=== PATIENT | female | born 1990 | race American Indian/Alaskan Native ===

== ENCOUNTER 2017-04-06 11:18 | Day surgery (SDC) | payer BC, OTHER ==
[2017-04-03 12:00] VITALS: BMI 25.0
[2017-04-06] MEDS ORDERED: Bupivacaine 0.5% Inj(30mL) ONE (11:58)
[2017-04-06 12:11] LABS: BASO % 0.6 % (0.0-2.0); EOS # 0.1 K/uL (0.0-0.7); HEMOGLOBIN 11.5 g/dL (12.0-16.0); LYMPH # 1.6 K/uL (1.0-4.3); LYMPH % 29.6 % (20.0-40.0); MEAN CELL VOLUME 97.8 fl (81.0-99.0); MEAN CORPUSCULAR HEMOGLOBIN 31.3 pg (27.0-31.0); MEAN PLATELET VOLUME 6.2 fl (7.2-11.7); MONO # 0.4 K/uL (0.0-0.8); MONO % 7.5 % (0.0-10.0); NEUT # 3.3 K/uL (1.8-7.0); NEUT % 61.3 % (50.0-75.0); NRBC % 0.1 % (0.0-0.0); RBC 3.68 Mil/uL (3.80-5.20); RED CELL DISTRIBUTION WIDTH 12.4 % (11.5-14.5); WHITE BLOOD COUNT 5.4 K/uL (4.8-10.8)
[2017-04-06] MEDS ORDERED: ePHEDrine 50 mg/ml Inj ONE (12:29)
[2017-04-06] MEDS ORDERED: Midazolam 2 MG/2 ML VIAL ONE (12:29)
[2017-04-06] MEDS ORDERED: Propofol 10 mg/ml Inj (20 ML) ONE ×2 (12:29→14:59)
[2017-04-06] MEDS ORDERED: Rocuronium 10 mg/ml (5 ml) ONE (12:29)
[2017-04-06] MEDS ORDERED: Succinylcholine 200 mg/10 ml Inj IV ONE (12:29)
[2017-04-06] MEDS ORDERED: Lactated Ringer's 1,000 ML IV ONE ×3 (13:09→17:00)
[2017-04-06] MEDS ORDERED: Dexamethasone 4 mg/1 ml ONE (13:29)
[2017-04-06] MEDS ORDERED: Bupivacaine 0.5% 50 ML IJ ONE ×2 (13:34)
--- NOTE | 2017-04-06 15:35 | PCM.SURG1 ---
Surgeon's Initial Post Op Note - Surgeon's Notes Surgeon: Dr. Claudio Chainstitch Elastic Attacher: Dom Mclean PGY2, Mike FELIZ Type of Anesthesia: General Endo Pre-Operative Diagnosis: R dermoid cyst Operative Findings: R dermoid cyst, hair Post-Operative Diagnosis: Same Operation Performed: Robotic R cystectomy Specimen/Specimens Removed: Dermoid cyst, hair Estimated Blood Loss: EBL {In ML}: 10 Blood Products Given: N/A Drains Used: No Drains Post-Op Condition: Good Date of Surgery/Procedure: 04/06/17 Time of Surgery/Procedure: 15:35
[2017-04-06] MEDS ORDERED: Oxycodone/Acetaminophen 5/325 mg Tab PO PRN (15:36)
[2017-04-06] MEDS ORDERED: Neostigmine Methylsulfate 2 MG/2 ML ML IV ONE (15:37)
[2017-04-06] MEDS: HYDROmorphone 0.5 mg/0.5 ml ISec IVP PRN ×3 (15:48→16:42)
[2017-04-06] MEDS ORDERED: Oxycodone/Acetaminophen 5/325 mg Tab PO ONE (15:49)
--- NOTE | 2017-04-06 22:45 | OP ---
PREOPERATIVE DIAGNOSIS: Right dermoid cyst. POSTOPERATIVE DIAGNOSIS: Right dermoid cyst. PROCEDURE: Right ovarian cystectomy, robotic assisted. SURGEON: Dr. Svitlana Claudio. COMPENSATION BUSINESS PARTNER: . TYPE OF ANESTHESIA: General. ANESTHESIA ADMINISTERED BY: Dr. Campos. ESTIMATED BLOOD LOSS: 50 mL, Rivas catheter put out approximately 500 mL of clear urine. Patient received approximately 1 liter of D5 in OR intraoperatively. OPERATIVE FINDINGS: Normal uterus with approximately 2 cm posterior myoma, endometriosis located along the right uterosacral ligament, large right 9 cm dermoid cyst, normal left ovary and tube. assisted in the procedure, he was instrumental in the care of the patient. He helped to create exposure, obtain hemostasis, he was helpful in extraction of the specimen and closure of the patient. Procedure would not had been possible without his assistance. PROCEDURE: After informed consent was obtained, the patient was taken to the operating room and she was given general anesthesia. The patient was then placed, prepped and draped in a modified dorsal lithotomy position. A weighted speculum was then inserted into the vagina, cervix was visualized, grasped with a single-toothed tenaculum. The cervix was gently dilated and a Humi uterine manipulator was inserted into the uterine cavity as a means to manipulate the uterus. Attention was then turned to the urethra where a Rivas catheter was inserted to monitor the patient's urinary output. Attention was then turned to the abdomen, where Marcaine was infused approximately 2 cm superior to the umbilicus. A 8 mm incision was made. The abdomen was then tented upward and the varus needle was introduced into the abdominal cavity, placement was confirmed with a fluid filled syringe. The abdomen was then insufflated to 15 mmHg. The Veress needle was removed and an 8 mm robotic port was introduced into the abdominal cavity and placement was confirmed with the laparoscope. Attention was then turned to approximately 3 cm superior to the right anterior iliac crest. Marcaine was infused. A 8 mm incision was made and a robotic port was introduced into the abdominal cavity. Attention was then turned to the left side approximately 3 cm superior to the left anterior iliac crest in similar fashion. Marcaine was infused and 8 mm incision was made, and an 8 mm robotic port was introduced into abdominal cavity. Approximately 5 cm left and lateral, the 5 mm incision was made and a 5 mm port was introduced into the abdominal cavity using the assisted port. The instruments used for the surgery were PK dissector, and a scissor, and a laparoscopic grasper. Actually the patient was placed in steep Trendelenburg, the table was lowered. The robot was brought along the patient side and docked without complication. The instruments inserted in the abdomen were the PK dissector and scissor. I then proceeded to break scrub and proceeded to surgical console. Attention was then turned to the right ovary. The cortex was scored and the dermoid was enucleated using series of both sharp and blunt dissection. Once the cyst was enucleated from the ovary, it was placed in the pelvis. Hemostasis was obtained with PK dissector. There was some extravasation of material, which was fatty tissue or fatty fluid. It was suctioned with a suction retort load expediter. Once the cyst was enucleated, the robot was then docked and all instruments were removed from the abdomen. The robot was docked. The right incision was 3 cm superior to the iliac crest was extended to approximately 10 mm and a 10 mm port was introduced into the abdominal cavity. An endobag was inserted. The cyst was placed in the endobag and extracted without complication. The abdomen was then copiously irrigated. The irrigant was removed with the suction device. The abdomen was surveyed. No hair or fatty secretions were identified. The ovary was reexamined and the edges were cauterized. The Surgicel was placed on the ovary. All instruments were then removed from the abdomen. The attention was then turned to the 10 mm port. The fascia was identified and closed with 0 Vicryl. The remaining incisions were closed with Dermabond. All sponge, lap, needle, and instrument counts were correct x2, and the patient was taken to the recovery room in awake and stable condition. Tory Claudio MD
[2017-04-06 22:53] VITALS: RESP 17; TEMP 97.5; O2SAT 96
[2017-04-06 22:56] VITALS: BP 129/80; PULSE 82
== END 2017-04-06 22:25 | disposition home or self-care (01) ==
LOC: H.OPSURG 11:18 → H.MEDSURG1 20:07 → H.OPSURG 22:25
PROVIDERS: ATTEND Obstetrics & Gynecology Gynecology
DX: N83.209 Unspecified ovarian cyst, unspecified side (principal); R10.2 Pelvic and perineal pain; J45.909 Unspecified asthma, uncomplicated; N83.291 Other ovarian cyst, right side
CPT/HCPCS: 36415; 58662; 85025; 86850; 86900; 88304; J0330; J0690; J1100; J1170; J2001; J2250; J2405; J2704; J2710; J2765; J3010; J7120